=== PATIENT | female | born 1980 | race Caucasian/White ===

== ENCOUNTER 2019-03-25 21:13 | Emergency (ER) | payer OTHER, SELFPAY ==
[2019-03-25 21:20] VITALS: BP 113/75; PULSE 78; RESP 20; TEMP 37.2; O2SAT 98
--- NOTE | 2019-03-25 21:30 | ED.FEVER ---
HPI - Fever General Chief Complaint: Upper Respiratory Infection Stated Complaint: BODY ACHES,CHEST CONGESTION Source: patient Mode of arrival: ambulatory Limitations: no limitations History of Present Illness HPI Narrative: This is a 38-year-old female with no significant past medical history that presents with a 4 day history of cough congestion body aches and fever, does have a history of smoking, currently not short of breath no audible wheezing no nausea vomiting abdominal pain no sore throat no headaches or photophobia. MD elicited complaint: fever Onset (ago): day(s) Measured temperature: 100 C Exacerbating factors: nothing Relieving factors: ibuprofen Associated symptoms: chills, myalgias and cough Related Data Home Medications Medication Instructions Recorded Confirmed Depo-SubQ provera 104 1 ea IM [id number] 03/25/19 03/25/19 Allergies Allergy/AdvReac Type Severity Reaction Status Date / Time No Known Allergies Allergy Verified 03/25/19 21:27 Review of Systems Review of Systems: All systems reviewed & are unremarkable except as noted in HPI and below PMFSH Past Medical History Medical History Patient denies medical problems Social History Social History Gender identity (if verbalized by the patient): Female Exam Const: General: no acute distress and alert Orientation/consciousness: patient oriented x3 HENMT: Head: normal to inspection Mouth: Yes Normal oral and palatal mucosa present Eyes: Conjunctivae: conjunctivae normal Neck: Neck: normal visual inspection, no lymphadenopathy and no meningeal signs Chest: Chest palpation & inspection: normal inspection of the chest Resp: Effort & Inspection: normal respiratory effort Cardio: Rate: regular rate Rhythm: regular rhythm GI: GI Palp: Yes Soft to palpation Skin: General skin exam: normal color Rashes: no rashes Neuro: General: patient oriented x3, moves all extremities and no meningeal signs Psych: Mental Status: mental status grossly normal Critical Care Time Critical Care Time Critical Care Time: No Discharge Plan Discharge Clinical Impression: Bronchitis Patient Disposition: Home, Self-Care Condition: Stable Instructions: Antibiotic Form, Acute Bronchitis (ED) Additional Instructions: Follow-up with primary care physician if symptoms persist or worsen. Take medicine as prescribed Prescriptions: New azithromycin [Zithromax Z-Nathaniel] 250 mg tablet 250 mg PO DAILY 5 Days Qty: 5 RF: 0 benzonatate [Tessalon Perles] 100 mg capsule 100 mg PO TID Qty: 20 RF: 0 No Action Depo-SubQ provera 104 1 ea IM [id number] RF: 0 Follow-up/Referrals: Abdullahi Lin M.D. [Primary Care Provider] - Time of Disposition: 22:12
[2019-03-25 21:36] VITALS: O2SAT 98
--- NOTE | 2019-03-25 21:44 | PC.NURSE ---
nasal swab obtained and taken to lab
[2019-03-25 22:05] LABS: Influenza Control Valid (Valid)
[2019-03-25 22:24] VITALS: RESP 15
[2019-03-25] MEDS: ACETAMINOPHEN 500 MG TABLET 1000 MG PO (22:24)
[2019-03-25] MEDS: AZITHROMYCIN 250 MG TABLET 500 MG PO (22:25)
== END 2019-03-25 22:30 | disposition home or self-care (01) ==
PROVIDERS: Emergency Provider Emergency Medicine; PCP Family Medicine
DX: J40 Bronchitis, not specified as acute or chronic (principal)
CPT/HCPCS: 87804; 99283; A9270

== ENCOUNTER 2020-02-22 20:38 | Emergency (ER) | payer OTHER, SELFPAY ==
--- NOTE | ~2020-02-22 | XR_ITS ---
EXAMINATION: XR foot RT min 3V DATE: 02/22/2020 21:12 INDICATION: Anterior right foot pain and swelling TECHNIQUE: Dorsoplantar, two oblique and lateral views of the right foot were obtained. COMPARISON: None. FINDINGS: Alignment is normal. No fracture. Moderate osteoarthritis at the first metatarsophalangeal joint with prominent marginal osteophytes along the dorsal and lateral sides of the joint space which may restr ict range of motion dorsal flexion (hallux rigidus). Remaining joint spaces are relatively preserved. Mild surrounding soft tissue swelling. IMPRESSION: 1. Moderate osteoarthritis at the first metatarsophalangeal joint. No acute osseous abnormality. Reviewed, dictated and finalized at location A. P TECHNOLOGIST IMPRESSION: 1. Moderate osteoarthritis at the first metatarsophalangeal joint. No acute oss eous abnormality.
[2020-02-22 20:45] VITALS: BP 134/86; PULSE 78; RESP 20; TEMP 36.8; O2SAT 98
--- NOTE | 2020-02-22 21:32 | ED.LOWEXIN ---
HPI - Extremity Injury (Lower) General Chief Complaint: Extremity Injury, Lower Stated Complaint: foot pain Time Seen by Provider: 02/22/20 20:55 Source: patient and family Mode of arrival: ambulatory Limitations: no limitations History of Present Illness HPI Narrative: Patient states she has had right forefoot pain for the past several days. she comes in because of this, and because of mild swelling at site. Injury: Right: foot Type of Injury: unknown Place: work Severity: mild Severity scale (1-10): 3 Relieving factors: rest Exacerbating factors: weight bearing Context: other (unknown) Other symptoms: none Treatments prior to arrival: NSAIDS Related Data Home Medications Medication Instructions Recorded Confirmed Depo-SubQ provera 104 1 ea IM [id number] 03/25/19 03/25/19 Allergies Allergy/AdvReac Type Severity Reaction Status Date / Time acetaminophen [From Vicodin] Allergy Nausea and Verified 02/22/20 22:15 Vomiting codeine Allergy Nausea and Verified 02/22/20 22:15 Vomiting hydrocodone [From Vicodin] Allergy Nausea and Verified 02/22/20 22:15 Vomiting Review of Systems Constitutional: Constitutional: Reports no additional constitutional complaints Eyes: Eyes: Reports no additional eye complaints ENT: Reports system reviewed and no additional complaints, except as documented Cardiovascular: Cardiovascular: Reports no additional cardiovascular complaints Respiratory: Respiratory: Reports no additional respiratory complaints Gastrointestinal: Gastrointestinal: Reports no additional gastrointestinal complaints Genitourinary: Genitourinary: Reports no additional female genitourinary complaints Musculoskeletal: Musculoskeletal: Reports no additional musculoskeletal complaints Integumentary/Breasts: Skin/Breast: Reports system reviewed and no additional complaints, except as docu Neurologic: Reports system reviewed and no additional complaints, except as documented Psychiatric: Psychiatric: Reports no additional psychiatric complaints Endocrine: Endocrine: Reports no additional endocrine complaints Hematologic/Lymphatic: Hematologic/Lymphatic: Reports no additional hematologic/lymphatic complaints Allergic/Immunologic: Allergic/Immunologic: Reports no additional allergic/immunologic complaints [facility] Past Medical History Medical History (Updated 02/23/20 @ 06:07 by Carlos Azar MD) Asthma delivery delivered delivery delivered Encounter for childbirth instruction Patient denies medical problems Surgical History Surgical History (Updated 02/23/20 @ 06:07 by Carlos Azar MD) No significant past surgical history Family History Family History (Updated 02/23/20 @ 06:08 by Carlos Azar MD) Mother No significant family history Father No significant family history Social History Social History (Updated 02/23/20 @ 06:09 by Carlos Azar MD) Smoking status: Current some day smoker Tobacco type: e-cigarettes/vaping Alcohol intake: current Alcohol use details: minimal Gender identity (if verbalized by the patient): Female Exam Const: General: no acute distress HENMT: Head: normal to inspection Ears: external ears normal and TM's normal bilaterally Face and sinus: normal facial exam Mouth: Yes moist mucous membranes Throat: posterior oropharynx normal Eyes: Conjunctivae: conjunctivae normal Pupils: Equal, round and reactive pupils present Neck: Neck: normal visual inspection and no lymphadenopathy Chest: Chest palpation & inspection: normal inspection of the chest Resp: Effort & Inspection: normal respiratory effort Auscultation: clear to auscultation bilaterally Cardio: Rate: regular rate Rhythm: regular rhythm GI: GI Palp: Yes Soft to palpation Percussion: Yes other Other: nontender Back/Spine/Pelvis: Back: no CVA tenderness Skin: General skin exam: normal color Neuro: General: patient oriented x3 Extrem: Gener
[2020-02-22 22:11] VITALS: PULSE 75; RESP 20; O2SAT 99
== END 2020-02-22 22:13 | disposition home or self-care (01) ==
PROVIDERS: Emergency Provider Emergency Medicine; PCP Family Medicine
DX: M79.671 Pain in right foot (principal)
CPT/HCPCS: 73630; 99283